=== PATIENT | male | born 1955 | race Caucasian/White ===

== ENCOUNTER 2022-04-16 06:46 | Observation (INO) ==
--- NOTE | 2022-04-10 09:43 | Anesthesiology Consultation ---
Date of Service April 10, 2022 Assessment & Plan (1) Encounter for pre-operative examination: - Re-scheduled d/t positive COVID test 03/19/22. - will request most recent [facility] cardiology office note for chart completion. - excessive alcohol intake: 3-6 drinks daily. Chart Review Chart Review: Pending: Refer to Additional Notes / Consult section and Patient NOT seen in Pre Admission Testing History Surgery Operation Date: 04/16/22 07:30 Proposed Procedures p Robotic Laparoscopic Assisted Radical Retropubic Prostatectomy, Possible Open, Possible Pelvic Lymph Node Dissection, Possible Suprapubic Tube Placement - Savage Cervantes MD Height/Weight Height: 5 ft 10 in Weight: 65.771 kg Allergies Allergy/AdvReac Type Severity Reaction Status Date / Time No Known Allergies Allergy Verified 04/10/22 09:00 Medications Home Medications Medication Instructions Recorded Confirmed Last Taken apixaban 5 mg tablet (Eliquis) 5 mg PO BID 02/08/22 04/10/22 04/09/22 amlodipine 5 mg tablet (Norvasc) 5 mg PO QAM 02/18/22 04/10/22 03/18/22 09:00 albuterol sulfate 90 mcg/actuation 1 inh inhalation QID PRN short of 03/07/22 04/10/22 Unknown breath activated powder inhaler breath tiotropium bromide 2.5 2 puff inhalation DAILY PRN sob 03/07/22 04/10/22 Unknown mcg/actuation mist for inhalation (Spiriva Respimat) Past Medical History Medical History (Updated 04/10/22 @ 09:42 by Eve Hsu PA-C) Cervical disc disease Chronic obstructive pulmonary disease History of colon polyps BENIGN History of COVID-19 06/23/21>SYMPTOMS RESOLVED. 03/19/22: Hx of deep venous thrombosis 08/2021 AFTER FX PELVIS>REASON ELIQUIS RX Hx of fracture of pelvis 07/2021>NO SURGERY>LATER DEVELOPED DVT Hypertension Mild emphysema has not needed inhaler rx Prostate cancer DX JUN 15 2021, REASON FOR UPCOMING SX Pulmonary hypertension Thrombocytopenia listed hx, pre-op Plt 162 Past Family History Family History Father Family history of esophageal cancer Aunt Family history of diabetes mellitus Aunt Family history of diabetes mellitus Other No family history of adverse response to anesthesia Past Surgical History Surgical History H/O prostate biopsy History of appendectomy History of arthroscopy RT SHOULDER LEFT KNEE History of cardiac cath 4 YEARS AGO>NO STENTS ([facility]) History of cataract surgery RT/LEFT History of colonoscopy History of tonsillectomy and adenoidectomy History of tooth extraction Social History Smoking Status: Current every day smoker tobacco type: cigarettes and smokeless tobacco Smoking cigarettes per day: 2 PACKS PER WEEK ON AVERAGE/ADVISED NPO Do You Dip or Chew Tobacco: No Smoking End Date: 1 CAN PER WEEK/ADVISED NPO Hx Alcohol Use: Yes Alcohol type: beer alcohol intake frequency: 3 or more drinks per day Alcohol Intake Frequency Comment: 6 PER DAY Hx Substance Use: Yes substance use type: marijuana Substance Use Type Other:: MARIJUANA DAILY USE (ADVISED NPO) Last Used Substance Other:: LAST USE YESTERDAY APR 09 Testing Laboratory Results 04/05/2022 WBC: 4 H/H: 42 PLATELETS: 162 SODIUM: 136 POTASSIUM: 3.9 CHLORIDE: 100 CO2: 26 BUN: 5.6 CREATININE: 0.7 GLUCOSE: 93 Electrocardiogram Date: 02/28/22 Sinus bradycardia, rate 47 bpm Right ventricular conduction delay Chest X-Ray Date: 02/28/22 No acute cardiopulmonary disease Cardiac Catheterization Date: 02/09/16 Left main: angiographically normal LAD: angiographically normal Cx: angiographically normal RCA: angiographically normal Refer to pulmonary hypertension/CHF clinic Other Testing CT thorax 01/10/22 Interval development of groundglass and patchy airspace opacities in the superior segment of the right upper lobe with subcentimeter nodularity, including a 5 mm nodule posteriorly as well as a 7 mm cavitation versus cavitary nodule along the fissure. Inflammatory and/or infectious process, including atypical infection such as tuberculosis or fungal infection, are included in differential. Septic emboli also included in the differential. Cavitating neoplasm cannot be excluded. Consider pulmonary consultation as clinically warranted. Interstitial and emphysematous changes bilaterally. Mild prominence of the pulmonary artery again seen. Correlate for pulmonary arterial hypertension Subcentimeter mesenteric and hilar lymph nodes, unchanged. No pathologic lymphadenopathy by size criteria CT abdomen pelvis 07/04/21 No acute intraabdominal or intrapelvic inflammatory process or finding in the abdomen or pelvis No definite osseous metastatic disease or metastatic disease in the abdomen or pelvis Indeterminate bilateral adrenal masses by contrast enhanced CT, stable compared to 2016 CT, most consistent with adrenal adenomas Normal sized prostate. No discrete prostate mass evident. No pelvic/retroperitoneal lymphadenopathy No evidence of COVID 19 pneumonia
[~2022-04-16 06:46] MED LIST: HEPARIN SOD 5,000 UNIT/0.5 ML VIAL SC SCH; LR 15ML/HR IV SCH; ceFAZolin 2000MG 2,000 MG/15 ML SYR IV SCH
[2022-04-16] MEDS ORDERED: ONDANSETRON INJ 2 MG/ML 2 ML VIAL ONE (07:07)
[2022-04-16] MEDS ORDERED: DEXAMETHASONE SOD INJ 4 MG/ML VIAL ONE (07:07)
[2022-04-16] MEDS ORDERED: ROCURONIUM BROMIDE 10 MG/ML 5 ML VIAL IV ONE ×6 (07:07→09:35)
[2022-04-16] MEDS ORDERED: MIDAZOLAM HCL 1 MG/ML 2ML VIAL ONE (07:07)
[2022-04-16] MEDS ORDERED: fentaNYL citrate 100 MCG/2 ML VIAL ONE (07:07)
[2022-04-16] MEDS ORDERED: PROPOFOL IV EMULSION 10 MG/ML 20 ML VIAL IV ONE (07:07)
[2022-04-16] MEDS ORDERED: LIDOCAINE 2% MPF LOCAL 5 ML VIAL INFIL ONE (07:07)
--- NOTE | 2022-04-16 07:17 | History & Physical Report ---
Date of Service April 16, 2022 Assessment & Plan (1) Prostate cancer: Plan: Plan for prostatectomy today risks, benefits, expectations reviewed preoperative hep 5000 units given History of Present Illness Primary Care Provider: Des David MD Prostate cancer - gl 7 and 6 disease prior DVT (provoked) transiently on anticoagulation - now off minimal voiding dysfunction 35 g prostate Allergies Allergy/AdvReac Type Severity Reaction Status Date / Time No Known Allergies Allergy Verified 04/16/22 07:09 Home Medications Medication Instructions Recorded Confirmed Type apixaban 5 mg tablet (Eliquis) 5 mg PO BID 02/08/22 04/10/22 History amlodipine 5 mg tablet (Norvasc) 5 mg PO QAM 02/18/22 04/16/22 History albuterol sulfate 90 mcg/actuation 1 inh inhalation QID PRN short of 03/07/22 04/16/22 History breath activated powder inhaler breath tiotropium bromide 2.5 2 puff inhalation DAILY PRN sob 03/07/22 04/16/22 History mcg/actuation mist for inhalation (Spiriva Respimat) Past Med/Surg History Medical History Adrenal abnormality imaging abnormality felt to be most consistent with adrenal adenomas per CT report 07/04/21 Cervical disc disease Chronic obstructive pulmonary disease History of colon polyps BENIGN History of COVID-19 06/23/21>SYMPTOMS RESOLVED. 03/19/22: denies any current symptoms Hx of deep venous thrombosis 08/2021 AFTER FX PELVIS>REASON ELIQUIS RX Hx of fracture of pelvis 07/2021>NO SURGERY>LATER DEVELOPED DVT Hypertension Mild emphysema has not needed inhaler rx Prostate cancer DX JUN 15 2021, REASON FOR UPCOMING SX Pulmonary hypertension Thrombocytopenia listed hx, pre-op Plt 162 Surgical History H/O prostate biopsy History of appendectomy History of arthroscopy RT SHOULDER LEFT KNEE History of cardiac cath 4 YEARS AGO>NO STENTS ([facility]) History of cataract surgery RT/LEFT History of colonoscopy History of tonsillectomy and adenoidectomy History of tooth extraction Family History Father Family history of esophageal cancer Aunt Family history of diabetes mellitus Aunt Family history of diabetes mellitus Other No family history of adverse response to anesthesia Social History Smoking Status: Current every day smoker Cigarettes Per Day: 2 PACKS PER WEEK ON AVERAGE/ADVISED NPO; Smoking End Date: 1 CAN PER WEEK/ADVISED NPO; Second Hand Exposure: Yes (OCCAS.); Do You Dip or Chew Tobacco: No; Hx Alcohol Use: Yes Alcohol type: beer Hx Substance Use: Yes Last Used Substance Other:: LAST USE YESTERDAY APR 09 Substance Use Type Other:: MARIJUANA DAILY USE (ADVISED NPO) Preferred Language: Turkmen Communication Ability: Effective Hoist Operator Required: No Beliefs That Will Affect Care: None Current Living Situation: Alone Other Information That Helps Us Care for You: No Feels Safe at Home: Yes Assistive Devices: Denture - Upper, Denture - Lower and Glasses Review of Systems no fever, no chills and no fatigue no worsening vision no facial pain and no pain with swallowing no cough and no dyspnea no chest pain and no palpitations no abdominal pain, no nausea and no vomiting no back pain no rash and no urticaria no gait abnormality and no unsteadiness no behavioral changes and no depression no fatigue Physical Exam Constitutional: well developed and well nourished Neck: neck nontender Respiratory: normal respiratory effort; no respiratory distress and does not use accessory muscles Cardiovascular: Rate/Rhythm: regular rate Vessels: radial pulses present Extremities: no edema Gastrointestinal (Abdomen): Inspection/Auscultation: abdomen normal to inspection Percussion/Palpation: abdomen soft; abdomen nontender and no guarding Musculoskeletal: Head/Neck/Chest: normocephalic and head atraumatic Extremities: extremities normal to inspection Skin: no rashes and no lesions Trauma: no evidence of skin trauma Neurologic: awake; not obtunded Speech / Cognition: normal speech Motor/Sensory: no tremor Psychiatric: Orientation: alert and oriented x 3 Genitourinary: no CVA tenderness Lymphatic: no lymphadenopathy
[2022-04-16] MEDS ORDERED: ATROPINE SULFATE 0.1 MG/ML 10ML SYR IV PRN (07:38)
[2022-04-16] MEDS ORDERED: HYDROmorphone INJ 1 MG/ML SYRINGE IV PRN (07:38)
[2022-04-16] MEDS ORDERED: fentaNYL citrate 100 MCG/2 ML VIAL IV PRN (07:38)
[2022-04-16] MEDS ORDERED: ePHEDrine sulfate 50 MG/ML AMP IV PRN (07:38)
[2022-04-16] MEDS ORDERED: BUPIVACAINE 0.5 % 5 MG/1 ML MPF 30ML VIAL ONE (07:50)
[2022-04-16] MEDS ORDERED: BELLADONNA/OPIUM SUPP 60 MG SUPP PR ONE (08:33)
[2022-04-16] MEDS ORDERED: HYDROmorphone INJ 2 MG/ML SYR/VIAL ONE (09:17)
[2022-04-16] MEDS ORDERED: hydrALAZINE HCL 20 MG/ML VIAL ONE (09:43)
[2022-04-16] MEDS ORDERED: NEOSTIGMINE METHYLSULFATE 1 MG/ML 10ML VIAL ONE (11:03)
[2022-04-16] MEDS ORDERED: GLYCOPYRROLATE 0.2 MG/ML VIAL ONE (11:03)
[2022-04-16] MEDS ORDERED: SURGICEL ABSORB HEMOSTAT 2IN X 14IN TOP ONE (11:34)
[2022-04-16] MEDS ORDERED: FLOSEAL HEMOSTATIC MATRIX 10ML TOP ONE (11:34)
--- NOTE | 2022-04-16 12:20 | Operative Report ---
PG Post Operative Report Pre & Post Diagnosis Operation Date: 04/16/22 08:25 Pre-Op Diagnosis: Prostate Cancer Post-Op Diagnosis: Prostate Cancer I identified the patient and participated in the time-out.: Yes Procedure Operation Date: 04/16/22 08:25 Actual Procedures p Robotic Assisted Laparoscopic Prostatectomy, Pelvic Lymph Node Dissection(Not Applicable) - Savage Cervantes MD Surgeon Savage Cervantes MD Shank Scourer Mary Jo Munoz Estimated Blood Loss 100 Findings Consistent with Post-Op Diagnosis Specimens 1. Periprostatic fat 2. Prostate seminal vesicles 3. Left pelvic lymph nodes 4. Right pelvic lymph nodes Description of Procedure The patient was identified in the preoperative holding area, appropriate informed consents were reviewed and completed, and he was transported to the operating suite. Subcutaneous heparin was administered in the pre-operative holding area. Upon arrival in the operating suite, he received appropriate antibiotics and general anesthesia. He was positioned in dorsal lithotomy, a B&O suppository was inserted after digital rectal exam, and he was prepped and draped in standard fashion. A Ross catheter was inserted in the sterile field. A Veress needle was passed per umbilicus with uniform insufflation of the abdomen to 15mmHg. He was placed in steep Trendelenburg position. A periumbilical incision was then made to accommodate a 12mm Visiport with 10mm 0degree laparoscope. Inspection of the abdomen was carried out, and there was no evidence of traumatic entry or injury secondary to the Veress needle. After confirming a clear anterior abdominal wall, ports were subsequently placed in standard robotic prostatectomy fashion without incident. To begin the robotic portion of the case, the left lateral aspect of the sigmoid was mobilized off of the left pelvic side wall to allow the pouch of Steve to be appropriately visualized. I then made an incision in the pouch of Steve, overlying the seminal vesicles. Both SVs as well as the ampullae of the vasa were entirely dissected, with the vasa transected 3cm from the prostate. The medial umbilical ligaments were then controlled with bipolar electrocautery just inferior to the umbilicus. Following cauterization, they were divided utilizing monopolar cautery. A peritoneal incision was carried from this location to the medial aspect of the internal inguinal rings bilaterally with care to avoid opening through the ring. This incision was concluded when the vas deferens was reached. Dissection of the bladder and prostate off of the posterior aspect of the pubic arch was completed allowing full visualization of the prostate. The fat overlying the prostate was removed en bloc and passed off the table as a specimen labeled "periprostatic fat". The endopelvic fascia was cleared during this portion of the procedure, and subsequently opened - first on the right and then the left. The incision through the endopelvic fascia began near the prostate-bladder junction and was carried to the apex with extreme care to preserve all lateral levator musculature as well as the periurethral musculature and sphincter complex. I additionally preserved the puboprostatic ligaments. I then controlled the DVC with a 3-0 V-lock suture in overlapping/figure of 8 fashion. The lymph node dissection was then conducted. External iliac vessels were identified on the pelvic side wall. The packet of fat and lymphatic tissue that resides just under the iliac vein was elevated and off of the vein with a split and roll technique. The packet was dissected laterally to the circumflex vein and distally to the obturator nerve which was preserved. The proximal aspect of the packet was carried towards the bifurcation of the iliac vessels. A combination of monopolar and bipolar cautery were used to assist with control. After completing the dissection on both sides, the packets were collected and passed off of the table as specimens labeled "pelvic lymph nodes". My attention then returned to the prostate, with identification of the bladder neck aided by gentle traction on the Ross catheter and lateral to medial pressure at the presumed level of the bladder neck with the robotic instruments. An anterior cystotomy was made, the Ross balloon deflated and the catheter guided through the incision to allow anterior retraction. I attempted to preserve maximal bladder neck musculature as I circumferentially dissected around the bladder neck. After incision through the posterior aspect of the mucosa, the dissection was carried through detrusor muscle until the bilateral ampullae of the vasa were identified. The previously dissected vasa and SVs were brought through the incision and used to elevated the prostate anteriorly. A posterior plane behind the prostate was then developed - splitting Denonvilliers's fascia. This dissection was carried as far as possible towards the apex as well as far as possible laterally. An incision in the lateral prostatic fascia was then made bilaterally to facilitate control of the vascular pedicles and preservation of the nerve bundles. Vasculature running along the posterior/lateral aspect of the prostate was preserved as well as the tissue containing the nerves. The pedicles were then controlled with a series of Weck clips. The apical attachments of the prostate were remaining at that stage. The DVC was divided after control with bipolar cautery over the prostate. Continuous inspection from anterior and lateral views allowed me to closely follow the apical contour of the prostate and maximally preserve urethral length and tissue. The prostate was entirely freed at that point, and collected in an EndoCatch bag before being moved out of the field of vision. Hemostasis was confirmed and anastomosis of the bladder and urethra was completed utilizing a double armed V- Lock stitch. A new Ross catheter was inserted and the anastomosis tested with irrigation. There was no evidence of leak. A kilo style stitch was placed bilaterally to functionally marsupialize the area of the lymph node dissection. The robot was undocked, the specimen extracted through expansion of the catarina- umbilical camera port. The fascia was closed with a series of 0-PDS figure of 8 stitches. The right assistant child care teacher port was closed in two layers - with a figure of 8 0-Vicryl to reapproximate the fascia followed by 4-0 Monocryl to close the skin. Monocryl was used to close all other skin incisions. All wounds were dressed with Dermabond. The case was concluded and the patient taken to the PACU in stable condition. Mary Jo Munoz assisted from incision to closure. I attest to the content of the Intraoperative Record and any orders documented therein. Any exceptions are noted below.
[2022-04-16 12:53] LABS: BUN Creatinine Ratio 8.2 (10-20); Creatinine Clr Calc Pharmacy 95.8 ml/min; Est GFR (African American) 112.8 ml/min; Est GFR (Non-African American) 97.3 ml/min
[2022-04-16 12:56] LABS: Basophils # (auto) 0.02 K/uL (0-0.2); Basophils % (auto) 0.4 %; Eosinophils # (auto) 0.01 K/uL (0-0.50); Eosinophils % (auto) 0.2 %; Hematocrit (blood only) 40.4 % (40.1-51.0); Hemoglobin 14.5 g/dl (14.0-18.0); Immature Granulocytes # (auto) 0.05 K/uL (0.00-0.02); Immature Granulocytes % (auto) 1.1 %; Lymphocytes % (auto) 10.6 %; Mean Corpuscular Hemoglobin 36.1 pg (25.0-34.0); Mean Corpuscular Hgb Conc 35.9 g/dL (32.0-36.0); Mean Corpuscular Volume 100.5 fL (80.0-100.0); Mean Platelet Volume 9.9 fL (9.4-12.4); Monocytes # (auto) 0.07 K/uL (0.24-0.82); Monocytes % (auto) 1.5 %; Neutrophils # (auto) 4.05 K/uL (1.4-6.5); Neutrophils % (auto) 86.2 %; Platelet Count 147 K/uL (130-400); Platelet Estimate Normal (Normal); RDW Coefficient of Variation 12.9 % (11.5-14.5); RDW Standard Deviation 48.4 fL (36.4-46.3); Red Blood Count 4.02 M/uL (4.63-6.08)
--- NOTE | 2022-04-16 13:02 | Anesthesiology Progress Note ---
Date of Service April 16, 2022 Anesthesia Post Procedure Vital Signs Vital Signs: Temp Pulse Pulse Resp BP Pulse Ox O2 Del Method 04/16/22 12:55 88 12 123/73 95 Room Air 04/16/22 12:45 36.4 C L 89 12 124/81 97 Room Air 04/16/22 12:25 81 11 L 140/72 99 Oxymask 04/16/22 12:15 75 14 129/70 100 Oxymask 04/16/22 12:35 82 16 129/71 96 Room Air 04/16/22 12:05 73 20 117/74 97 Oxymask 04/16/22 11:57 36.0 C L 94 H 22 169/92 H 99 Oxymask 04/16/22 07:10 36.6 C 69 20 153/85 H 100 Room Air O2 Flow Rate 04/16/22 12:55 04/16/22 12:45 04/16/22 12:25 2 04/16/22 12:15 3 04/16/22 12:35 04/16/22 12:05 4 04/16/22 11:57 5 04/16/22 07:10 Pain Intensity Abdomen: Pain Intensity: 4 Transfer of Care Handoff Completed per policy Notes Mental Status: alert / awake / arousable and participated in evaluation Patient Amnestic to Procedure: Yes Nausea / Vomiting: adequately controlled Pain: adequately controlled Airway Patency, RR, SpO2: stable & adequate BP & HR: stable & adequate Hydration State: stable & adequate Anesthetic Complications: no major complications apparent and Pt Satisfied with anesthetic care
[2022-04-16] MEDS ORDERED: MoRPHine SULFATE 4 MG/ML 1 ML CARP\\VIAL IV PRN (13:20)
[2022-04-16] MEDS ORDERED: oxyCODONE HCL IR 5 MG TAB (IMMEDIATE RELEASE) PO PRN (13:20)
[2022-04-16] MEDS ORDERED: MoRPHine SULFATE 2 MG/ML CARP IV PRN (13:20)
[2022-04-16] MEDS ORDERED: ONDANSETRON INJ 2 MG/ML 2 ML VIAL IV PRN (13:20)
[2022-04-16] MEDS ORDERED: ALBUTEROL HFA 8 GM INHALER INH PRN (13:54)
[2022-04-16] MEDS: LACTATED RINGER'S 1,000 ML IV SCH (14:13)
[2022-04-16] MEDS: ACETAMINOPHEN 325 MG TAB PO SCH ×2 (14:18→19:39)
[2022-04-16] MEDS: HEPARIN SOD 5,000 UNIT/0.5 ML VIAL SQ SCH ×2 (15:45→22:52)
[2022-04-16] MEDS: ceFAZolin 2000MG 2,000 MG/15 ML SYR IV SCH ×2 (15:56→23:00)
[2022-04-16] MEDS: oxyCODONE HCL IR 5 MG TAB (IMMEDIATE RELEASE) PO PRN (19:40)
[2022-04-16] MEDS: DOCUSATE SODIUM 100 MG CAP PO SCH (19:41)
[2022-04-17] MEDS: oxyCODONE HCL IR 5 MG TAB (IMMEDIATE RELEASE) PO PRN (00:15)
[2022-04-17] MEDS: LACTATED RINGER'S 1,000 ML IV SCH ×2 (00:18→10:42)
[2022-04-17] MEDS: ACETAMINOPHEN 325 MG TAB PO SCH ×2 (01:50→08:33)
[2022-04-17] MEDS: HEPARIN SOD 5,000 UNIT/0.5 ML VIAL SQ SCH (06:03)
[2022-04-17 06:58] LABS: Basophils # (auto) 0.01 K/uL (0-0.2); Basophils % (auto) 0.2 %; Hematocrit (blood only) 32.8 % (40.1-51.0); Hemoglobin 12.1 g/dl (14.0-18.0); Immature Granulocytes # (auto) 0.01 K/uL (0.00-0.02); Immature Granulocytes % (auto) 0.2 %; Lymphocytes # (auto) 0.76 K/uL (1.2-3.4); Mean Corpuscular Hemoglobin 36.8 pg (25.0-34.0); Mean Corpuscular Hgb Conc 36.9 g/dL (32.0-36.0); Mean Corpuscular Volume 99.7 fL (80.0-100.0); Mean Platelet Volume 10.5 fL (9.4-12.4); Monocytes # (auto) 0.42 K/uL (0.24-0.82); Monocytes % (auto) 8.8 %; Neutrophils # (auto) 3.55 K/uL (1.4-6.5); Neutrophils % (auto) 74.8 %; Platelet Count 118 K/uL (130-400); RDW Coefficient of Variation 12.9 % (11.5-14.5); Red Blood Count 3.29 M/uL (4.63-6.08); White Blood Count 4.75 K/ul (4.8-10.8)
[2022-04-17 07:01] LABS: BUN Creatinine Ratio 10.1 (10-20); Calcium 8.2 mg/dl (8.5-10.1); Creatinine Clr Calc Pharmacy 101.1 ml/min; Est GFR (African American) 115.5 ml/min; Est GFR (Non-African American) 99.6 ml/min
--- NOTE | 2022-04-17 08:07 | Urology Progress Note ---
Date of Service April 17, 2022 Assessment & Plan (1) Prostate cancer: Plan: Recovery on pace after prostatectomy Ambulate this morning Advance diet Likely discharge home later today Admission and Anticipated Discharge Date Admission Date: April 16, 2022 Subjective Subjectively seems to doing relatively well this morning No nausea or vomiting Some expected abdominal pain but otherwise feels well Urine clear Physical Exam Physical Exam: Incisions appropriate, no erythema, minimal ecchymosis Abdomen soft, not distended and nontender Results & Data ([facility]) Vital Signs (Past 12 Hours) Vital Signs Temp Pulse Resp BP Pulse Ox O2 Del Method 04/17/22 03:19 37 C 74 16 113/54 L 98 Room Air 04/16/22 22:47 36.8 C 91 H 16 133/73 97 Room Air PG Care Time/CCT Total # of Minutes Spent Total Time Spent with Patient: Total time spent is greater than 50% in coordination of care (as documented) at patient's floor/unit and/or counseling patient: Coding Level of Care Code None Diagnoses Prostate cancer C61
[2022-04-17] MEDS: DOCUSATE SODIUM 100 MG CAP PO SCH (08:34)
[2022-04-17] MEDS ORDERED: amLODIPine BESYLATE 5 MG TAB PO SCH (09:00)
--- NOTE | 2022-04-17 15:48 | Discharge Summary ---
Date of Service April 17, 2022 Admission HPI Per Admitting Provider Prostate cancer - gl 7 and 6 disease prior DVT (provoked) transiently on anticoagulation - now off minimal voiding dysfunction 35 g prostate Admission Exam Per Admitting Provider Constitutional: well developed and well nourished Neck: neck nontender Respiratory: normal respiratory effort; no respiratory distress and does not use accessory muscles Cardiovascular: Rate/Rhythm: regular rate Vessels: radial pulses present Extremities: no edema Gastrointestinal (Abdomen): Inspection/Auscultation: abdomen normal to inspection Percussion/Palpation: abdomen soft; abdomen nontender and no guarding Musculoskeletal: Head/Neck/Chest: normocephalic and head atraumatic Extremities: extremities normal to inspection Skin: no rashes and no lesions Trauma: no evidence of skin trauma Neurologic: awake; not obtunded Speech / Cognition: normal speech Motor/Sensory: no tremor Psychiatric: Orientation: alert and oriented x 3 Genitourinary: no CVA tenderness Lymphatic: no lymphadenopathy Principal Diagnosis Prostate cancer Discharge Exam Constitutional well developed and well nourished; no acute distress Respiratory normal respiratory effort; no respiratory distress and no labored breathing Gastrointestinal (Abdomen) Percussion/Palpation: abdomen soft; abdomen nontender Musculoskeletal Head/Neck/Chest: normocephalic and head atraumatic Skin Incisions appropriate, no erythema, minimal ecchymosis Neurologic moves all extremities and awake Psychiatric Orientation: alert and oriented x 3 Genitourinary Ross intact and draining clear urine Discharge Data Allergies Allergy/AdvReac Type Severity Reaction Status Date / Time No Known Allergies Allergy Verified 04/16/22 07:09 Procedures Performed Operation Date: 04/16/22 08:25 Actual Procedures p Robotic Assisted Laparoscopic Prostatectomy, Pelvic Lymph Node Dissection(Not Applicable) - Savage Cervantes MD Hospital Course (1) Prostate cancer: Recovery on pace after prostatectomy Ambulate this morning Advance diet Likely discharge home later today Patient reassessed after breakfast and progressing as expected. He is ready for discharge now. Discharge order placed - discharge to home with Ross catheter. Expected clinical course reviewed, all questions answered. Follow-up appointments in place. Total Time Total Time Spent Total Time Spent (In Minutes): 29 Discharge Plan Discharge Items Patient Disposition: Home - Self-Care Reason For Visit: Prostate Cancer Discharge Diagnosis: Prostate cancer Activity: Per Instructions section Lifting: No more than 25 pounds Bathing Comment: Okay to shower after discharge, no tub bath or soaking Sexual Activity: Wait until after follow-up appointment Exercise/Sports: Wait until after follow-up appointment Driving/Machine Use: No driving while taking prescription pain medication Non-emergency contact: Surgeon and Urologist Call non-emergency contact if: your pain is not controlled, your pain is worsening, you have a fever, your temperature is above 101, your wound has increased redness, your wound has increased drainage and your wound pain has increased Follow-up/Referrals: Savage Cervantes MD [Physician] - 05/01/22 8:45 am Des David MD [Primary Care Provider] - Urology,Nurse [FAKE FOR SCHEDULES] - 04/23/22 9:00 am Diet: Regular Addtl Attending Provider Instructions: Please take all medications as prescribed and keep all follow-ups as scheduled. Please call our office at [phone] with any questions, concerns or need to reschedule appointments for any reason. We are happy to assist you. We have sent an antibiotic to your pharmacy of choice. Please begin antibiotic as prescribed the day BEFORE your scheduled voiding trial at [facility] [place] [place] [facility]. Please continue antibiotic every 12 hours through the day AFTER your voiding trial. You can resume your Eliquis on Thursday 04/19. Activity: We recommend having someone with you for the first few days after surgery to help care for you. For the first 2 weeks after surgery, we would like you to get up and walk around your house. However, we recommend limit physical activity that would increase your heart rate. This will allow your body to rest and heal. Take naps if you feel tired. Don't lift anything heavier than 10 pounds, mow the law or ride a bicycle until your follow-up appointment. Please avoid long car rides. Home Care: Unless directed otherwise, drink 6 to 8 glasses of water a day (enough to keep your urine light colored). This will also help keep a healthy flow of urine. We recommend using a stool softener for the first two weeks to avoid constipation. Ross Catheter or Suprapubic Catheter care: Keep the catheter well secured with either a leg back or leg strap with large bag. Empty your bag when it's about half full. You may notice some blood in the bag. This is normal after surgery and while the catheter is in place. Use mild soap (such as Dove or Dial) and water to wash the catheter and the head of your penis daily, or more frequently if needed. Return to your normal diet, we encourage good protein intake to promote heal ing. You may shower as normal. Please avoid tub baths or soaking until catheter removed and incisions well healed. Wearing sweat pants while you have the catheter is recommended, they will be more comfortable. Follow-up Your follow up appointments for having your catheter removed, and follow up with your physician should already be scheduled. If you have any questions regarding this, please contact our office. Your final pathology report will be discussed at your physician follow-up appointment. Call [facility] [place] [place] [facility] at [phone] right away if you have any of the following: Chest pain or trouble breathing (call [phone] or go to the hospital) Fever of 101F or higher, uncontrolled vomiting Heavy bleeding, clots, or bright red blood from the catheter Catheter that falls out or stops draining Foul-smelling discharge from your catheter Redness, swelling, warmth, or increased pain at your incision site Drainage, pus, or bleeding from your incision Pending Studies at Discharge: Yes Studies:: Pathology pending Stand-Alone Forms: [facility] [employer], Smoking Cessation Medications and DC Order Prescriptions: New ciprofloxacin HCl 500 mg tablet 500 mg PO BID Qty: 6 0RF Rx Instructions: Start 1 day prior to catheter removal oxycodone-acetaminophen [Percocet] 5-325 mg tablet 1 tab PO TID PRN (Reason: pain) Qty: 10 0RF Rx Instructions: post operative pain docusate sodium [Colace] 100 mg capsule 100 mg PO BID Qty: 60 0RF Rx Instructions: Take twice daily for 2 weeks, then as needed for constipation. Continued Eliquis 5 mg tablet 5 mg PO BID Label Comments: last dose yesterday, to hold until after surgery from my amlodipine [Norvasc] 5 mg tablet 5 mg PO QAM Spiriva Respimat 2.5 mcg/actuation Mist 2 puff INHALATION DAILY PRN (Reason: sob) Label Comments: i don't use it albuterol sulfate 90 mcg/actuation Aerosol Powdr Breath Activated 1 inh INHALATION QID PRN (Reason: short of breath) Label Comments: didn't do any good ; didn't work i threw it away Discharge Orders: Discharge Order (Routine); Ordered 04/17/22 Ordered By: Mary Jo Hopkins/Other Patient Handouts: Indwelling Urinary Catheter Dc, Leg Bag Care Dc Admission Data Admit Date/Time: 04/16/22 11:44 Attending Provider: Savage Cervantes Admit Provider: Savage Cervantes Primary Care Provider: Des David Other Interventions: Discharge Summary Assessment (RN) Last Done: 04/17/22 11:20 Coding Level of Care Code D/C DAY MANAGEMENT <30 MINS Diagnoses Prostate cancer C61
== END 2022-04-17 12:51 | disposition home or self-care (01) ==
LOC: ASU 06:46 → PACUINP 11:44 → INTOOBSV 11:44 → 3N 13:44